=== PATIENT | male | born 1965 ===

== ENCOUNTER 2023-06-07 23:24 | Emergency (ER) | payer OTHER, SELFPAY ==
[2023-06-07 23:42] VITALS: BP 126/82
[2023-06-08] MEDS: TYLENOL 1000 MG PO (00:34)
--- NOTE | 2023-06-08 00:40 | ED.GENMED ---
History of Present Illness
General
Chief Complaint: Fall
Source: patient and spouse
Exam Limitations: none
Time Seen by Provider: 06/07/23 23:57
Nursing documentation reviewed up to this point in time: agreed with
Travel History
Have you had any contact with someone who has COVID-19?: No
Do you have any symptoms of coronavirus? Fever > 100 degrees, chills, cough, shortness of breath, sore throat, loss of taste or smell, muscle aches, or headache?: No
History of Present Illness
History of Present Illness:
58-year-old male with no clinically significant past medical history states he walked into his kitchen which was dark 9:30 p.m. and tripped over a large firm box injuring his right upper chest just anterior to the axilla and striking the right
lateral eyebrow on the floor causing a laceration. He denies loss of consciousness. He has a mild headache. He denies visual changes. He denies neck pain. He could not get the laceration to stop bleeding so he came here
Past History
Past History
ED Past Medical History: Asthma, GERD, Hypercholesterolemia and Other (Pituitary adenoma)
ED Past Surgical History: Orthopedic
Social History
Tobacco: Non-smoker
Alcohol: None
Personal:
Living: with family
Employment: Employed
Review of Systems
Review of Systems
Allergies reviewed?: Yes
All Other Systems: ROS reviewed and negative except as documented in HPI and ROS
Constitutional: Denies fatigue
Respiratory: Denies trouble breathing
Cardiac: Denies chest pain
ABD/GI: Denies abdominal pain or nausea
Musculoskeletal: Denies neck pain or back pain
Skin: Reports other (Cut lateral aspect of right eyebrow)
Neurological: Reports headache (Mild); Denies dizzy, weakness or numbness
Phy Exam
Physical Exam
Physical Exam:
GENERAL: No acute distress. A&Ox3.
CONSTITUTIONAL: Afebrile.
EYES: PERRL, conjunctivae normal
Neck: Supple
ENMT: moist mucus membranes, Pharynx nl, TMs normal
RESPIRATORY: Regular respirations, nonlabored, lungs clear.
CARDIOVASCULAR: Regular rate and rhythm, no murmurs, no rubs.
GI: Soft, nontender, normal BS
MUSCULOSKELETAL: Moves with ease. Well perfused.
SKIN: Warm, dry, pink, small laceration lateral aspect right eyebrow
PSYCH: Normal mood and affect. Well kept, interactive and appropriate
NEUROLOGIC: Awake, alert and oriented. No focal neurological deficits. Cranial nerves II through XII intact. Finger-nose intact. Ambulates well with steady gait.
Course
Orders/Labs/Results
Orders:
Orders
06/08/23 00:27
Acetaminophen [Tylenol] 1,000 mg PO NOW STA
Tetanus/Diphth/Acelpertussis [Adacel] 0.5 ml IM .ONCE ONE
Vital Signs
Initial and Last Documented VS:
Initial Vital Signs
Temp Pulse Resp BP Pulse Ox
98 F 64 16 126/82 96
06/07/23 23:42 06/07/23 23:42 06/07/23 23:42 06/07/23 23:42 06/07/23 23:42
Last Documented Vital Signs
Temp Pulse Resp BP Pulse Ox
98 F 65 18 114/83 96
06/07/23 23:42 06/08/23 01:44 06/08/23 01:44 06/08/23 01:44 06/08/23 01:44
Procedures
Laceration Closure
right lateral eyebrow:
Status of Wound: clean
Size of Wound in cm: 0.5
Description of Wound Edges: sharp
Preparation: cleaned with saline
Revision/Debridement: routine- no revision
Type of Closure: Dermabond-skin glue
Right Lateral Eye brow:
Status of Wound: clean
Size of Wound in cm: 0.5
Description of Wound Edges: sharp
Preparation: cleaned with saline
Revision/Debridement: routine- no revision
Type of Closure: Dermabond-skin glue
MDM/Problems Addressed
Differential Diagnosis Includes:
Concussion
MDM/Problems Addressed:
58-year-old male with no clinically significant past medical history states he walked into his kitchen which was dark 9:30 p.m. and tripped over a large firm box injuring his right upper chest just anterior to the axilla and striking the right
lateral eyebrow on the floor causing a laceration. He denies loss of consciousness. He has a mild headache. He denies visual changes. He denies neck pain. He could not get the laceration to stop bleeding so he came here
No loss of consciousness, not anticoagulated, no focal neurological deficits, no indication for head CT.
Wound edges well-approximated with wound glue
He has had tetanus immunization within the past 5 years
No neurological deficits
No sign of a concussion
Pt ambulated out with normal gait upon discharge
*Critical Care Note
Total Time (30-74mins, 75-104mins- exclusive of procedures): Not Applicable
ED Attending Note
-
Portions of this chart may have been created with voice recognition software.� Occasional wrong word or��sound alike� substitutions may have occurred due to the inherent limitations of voice recognition software.
Discharge Plan
Departure
Patient Disposition: Home (Routine Discharge)
Date of Disposition: 06/08/23
Time of Disposition: 01:32
Patient with high blood pressure during this ER visit?: No
Condition: Good
Discharge Problem:
Head injury, acute, without loss of consciousness, Laceration of right eyebrow, Fall, Contusion of chest wall
Instructions: Laceration Repair With Glue (DC), Head Injury in Adults (DC), Contusion (DC)
Referrals:
James Quinones MD [Family Provider] - As needed
Activity Restrictions/Additional Instructions:
As we discussed, the wound on your face will heal within 5 days. The glue should slough off within the next 2 weeks. You may briefly wet the area in the shower but do not rub it or apply any ointments for 5 days. After 5 days you may wash the
area as usual.
Return here immediately for vomiting more than once in 1 hour, confusion or headache that gets worse and worse despite Tylenol or ibuprofen.
Interventions
Interventions:
*Risk Screen - Suicide Last Done: 06/07/23 23:42
*General Assessment Last Done: 06/07/23 23:42
*Neglect/Abuse Screening Last Done: 06/07/23 23:42
ED- Fall Risk Assessment Last Done: 06/08/23 01:45
*ED COVID-19 Vaccine History Last Done: 06/08/23 01:45
*Nursing Disposition Last Done: 06/08/23 01:45
ED-Musculoskeletal Assessment Last Done: 06/08/23 00:54
ED- Neurological Assessment Last Done: 06/08/23 00:54
ED-Skin Assessment Last Done: 06/08/23 00:54
Discharge Date and Time
Discharge Date/Time: 06/08/23 01:45
[2023-06-08 01:44] VITALS: BP 114/83
== END 2023-06-08 01:45 | disposition home or self-care (01) ==
LOC: EMR 23:24
PROVIDERS: EMERGENCY PHYSICIAN Emergency Medicine; FAMILY PHYSICIAN Internal Medicine
DX: S09.90XA Unspecified injury of head, initial encounter (principal); S01.111A Laceration without foreign body of right eyelid and periocular area, initial encounter; S20.219A Contusion of unspecified front wall of thorax, initial encounter; W01.0XXA Fall on same level from slipping, tripping and stumbling without subsequent striking against object, initial encounter; J45.909 Unspecified asthma, uncomplicated; K21.9 Gastro-esophageal reflux disease without esophagitis; E78.00 Pure hypercholesterolemia, unspecified; Z86.018 Personal history of other benign neoplasm
CPT/HCPCS: 99282; 12011; 90715